=== PATIENT | female | born 1935 | race African-American/Black ===

== ENCOUNTER 2020-08-25 01:11 | Inpatient (IN) | payer MEDICARE, OTHER ==
[2020-08-25] VITALS (7 sets, daily range): BP systolic 95–153; BP diastolic 50–89
[~2020-08-25] VITALS: Ht 177.8 cm; Wt 85.6 kg
--- NOTE | 2020-08-25 01:11 | NUR ---
ED Nurse Note: brought in by [place] 67 from home c/o lt sided cp onset few hrs ago. pt reports pain radiation to let to rt shoulder 8./10 pain. states takiong nitro at home with no relief from pain. pt hx pacvemaker. denies sob, nvd, or dizziness. vss, nad, aaox4, ambulatory, on rn cardiac, ermd at bedside
--- NOTE | 2020-08-25 01:15 | NUR ---
ED Nurse Note: blood drawn and sent to lab
[2020-08-25] MEDS ORDERED: Nitroglycerin 2% oint pkt TOPIC ONE (01:30)
[2020-08-25] MEDS ORDERED: Morphine Sulfate 4mg/ml Inj (IV USE ONLY) IVP ONE (01:30)
--- NOTE | 2020-08-25 01:32 | NUR ---
ED Nurse Note: xr at bedside
--- NOTE | 2020-08-25 01:32 | Emergency Room Report ---
History of Present Illness General Chief Complaint: Chest Pain Source: Patient Present Illness HPI Pleasant 84-year-old female with a history of high blood pressure and COPD. She also has a pacemaker. She presents with treatment of chest pain. Onset around 10 PM. Pain is epigastric and substernal. Radiates to her left arm and in between the shoulder blades. Pain at its maximum was 8 out of 10. Better with nitroglycerin. Pain lasted about 4 to 5 minutes. She says she felt warm when it comes on. Denies any fever or chills. Denies any nausea or vomiting. No diaphoresis. With nitro, pain resolved but it only lasted for 5 to 10 minutes. Because of episodic pain, she called 911. [employer] gave her aspirin and x-ray of nitro. She said that helped. He said pain is better but still achy in nature. Allergies: Coded Allergies: No Known Allergies (Unverified , 08/25/20) COVID-19 Screening Contact w/high risk pt: No Experienced COVID-19 symptoms?: No COVID-19 Testing performed SCHOOL BUS DISPATCHER: No Patient History Past Medical History: see triage record, old chart reviewed, HTN, COPD Past Surgical History: pacemaker Pertinent Family History: none Social History: Denies: smoking Now: No Immunizations: other Reviewed Nursing Documentation: PMH: Agreed; PSxH: Agreed Nursing Documentation-PMH Hx Hypertension: Yes Hx Pacemaker: Yes - P/G 11/20/2013, RA and RV lead -04/06/1999 Hx COPD: Yes Review of Systems Eye: Denies: eye pain, blurred vision ENT: Denies: ear pain, nose congestion, throat swelling Respiratory: Denies: cough, shortness of breath Cardiovascular: Reports: chest pain; Denies: palpitations Gastrointestinal: Denies: abdominal pain, diarrhea, nausea, vomiting Musculoskeletal: Denies: back pain, joint pain Skin: Denies: rash Neurological: Denies: headache, numbness Endocrine: Denies: increased thirst, increased urine Hematologic/Lymphatic: Denies: easy bruising All Other Systems: negative except mentioned in HPI Physical Exam Vital Signs Date Time Temp Pulse Resp B/P (MAP) Pulse Ox O2 Delivery O2 Flow Rate FiO2 08/25/20 01:14 98.6 61 18 168/98 (121) 94 Room Air Vitals with high blood pressure Sp02 EP Interpretation: reviewed, normal General Appearance: well appearing, no apparent distress, alert Head: normocephalic, atraumatic Eyes: bilateral eye PERRL, bilateral eye EOMI ENT: hearing grossly normal, normal pharynx Neck: full range of motion, supple, no meningismus Respiratory: chest non-tender, lungs clear, normal breath sounds Cardiovascular #1: regular rate, rhythm, no murmur Gastrointestinal: normal bowel sounds, non tender, no mass, no organomegaly, no bruit, non-distended Musculoskeletal: back normal, normal range of motion, gait/station normal Psychiatric: mood/affect normal Medical Decision Making Diagnostic Impression: Primary Impression: ACS (acute coronary syndrome) ER Course This patient presents with chest pain. Her troponin is intermediate. EKG shows a paced rhythm. I see no evidence of Sgarbossa criteria for AMI. Patient is pain-free now. She received aspirin by golf ball cover treater. I gave her nitroglycerin, morphine and Lovenox here. Will admit for further work-up and cardiology consult. I contacted Dr. Antonio for admission. EKG Diagnostic Results Troponin ordered: Yes Rate: normal Rhythm: NSR ST Segments: other - Paced rhythm ASA given to the pt in ED: No - Given by EMS Rhythm Strip Diag. Results EP Interpretation: yes Rate: 60 Rhythm: NSR, no PVC's, no ectopy Chest X-Ray Diagnostic Results Chest X-Ray Diagnostic Results : Chest X-Ray Ordered: Yes # of Views/Limited/Complete: 1 View Indication: Chest Pain EP Interpretation: Yes Interpretation: no consolidation, no effusion, no pneumothorax, no acute cardiopulmonary disease, other - Pacemaker Impression: No acute disease Electronically Signed by: Martínez Mcarthur MD Last Vital Signs Date Time Temp Pulse Resp B/P (MAP) Pulse Ox O2 Delivery O2 Flow Rate FiO2 08/25/20 01:14 98.6 61 18 168/98 (121) 94 Room Air Status: improved Disposition: ADMITTED INPATIENT Condition: Serious Martínez Mcarthur MD Aug 25, 2020 01:32
[2020-08-25 01:42] LABS: BASOPHILS % (AUTO) 1.9 % (0.0-2.0); EOSINOPHILS % (AUTO) 15.1 % (0.0-3.0); HEMATOCRIT 42.4 % (37.0-47.0); HEMOGLOBIN 14.6 G/DL (12.0-16.0); LYMPHOCYTES % (AUTO) 33.2 % (20.0-45.0); MEAN CORPUSCULAR VOLUME 77 FL (80-99); MONOCYTES % (AUTO) 10.9 % (1.0-10.0); NEUTROPHILS % (AUTO) 38.9 % (45.0-75.0); PLATELET COUNT 163 K/UL (150-450); RED BLOOD COUNT 5.52 M/UL (4.20-5.40); RED CELL DISTRIBUTION WIDTH 13.2 % (11.6-14.8); WHITE BLOOD COUNT 5.8 K/UL (4.8-10.8)
[2020-08-25 01:53] LABS: CALCIUM 9.2 MG/DL (8.5-10.1); CREATININE 1.4 MG/DL (0.55-1.30); POTASSIUM 4.3 MMOL/L (3.5-5.1)
[2020-08-25 01:58] LABS: ALBUMIN 3.4 G/DL (3.4-5.0); BILIRUBIN,TOTAL 0.5 MG/DL (0.2-1.0)
[2020-08-25] MEDS ORDERED: Enoxaparin 80mg Inj SUBQ ONE (02:30)
--- NOTE | 2020-08-25 02:41 | NUR ---
ED Nurse Note: pt unable to provide urine at this time. will attempt at a later time
[2020-08-25] MEDS ORDERED: DISOPYRAMIDE P150 MG PO (02:45)
[2020-08-25] MEDS ORDERED: ASPIRIN81 MG ORAL (02:45)
[2020-08-25] MEDS ORDERED: METOPROLOL TAR100 M1 ORAL (02:45)
[2020-08-25] MEDS ORDERED: AMIODARONE HCL100 MG ORAL (02:45)
--- NOTE | 2020-08-25 02:49 | NUR ---
ED Nurse Note: gave report to Monisha STEIN
--- NOTE | 2020-08-25 02:50 | NUR ---
TRANSFER TO FLOOR: Patient transferred to [facility] via [facility] in stable condition as ordered, per dr. Antonio. Report given to Monisha STEIN. Belongings sent with patient
--- NOTE | 2020-08-25 03:10 | NUR ---
NURSES NOTES: Received report from [facility] ED, RN. Pt came to the floor in stable condition. Went over belonging with ED RN.Patient was able to ambulate from the gurney to the bed with assistance. Pt is A/O x 4. Pt is able to make needs known. Cheat pain of 6/10 noted. No SOB or acute distress noted. Pt is on room air stating at 96%. PT IV site is left AC 20G S/L; Patent and flushed. No bleeding or erythema noted. Patient was placed on the 5 lead teletypesetter monitor. Pt was placed on fall precaution. Bed in lowest position and locked with bed alarm on. Call light and belonging with in reach, patient educated on how to use call light. PT understand to use call light when needing assistance. Will contact Dr. mercado for admission ordered Will continue to monitor.
--- NOTE | 2020-08-25 03:44 | NUR ---
NURSE NOTES: Left message for Dr. Booth regarding patient status and requested admission orders. Awaiting call back. Will continue to monitor.
[2020-08-25] MEDS ORDERED: Morphine Sulfate 2mg/ml Inj(IV/IM USE ONLY) IVP PRN (06:00)
[2020-08-25] MEDS: D5 1/2NS 1,000 ML IV SCH ×2 (06:56→22:40)
--- NOTE | 2020-08-25 07:25 | NUR ---
NURSE HAND-OFF REPORT: Important Events on Shift: N/A Patient Status: Stable Diet: CCHO Pending Orders: Pending Results/Labs: Pending MD notification: Latest Vital Signs: Temperature 97.6 , Pulse 66 , B/P 150 /85 , Respiratory Rate 17 , O2 SAT 96 , Room Air, O2 Flow Rate . Vital Sign Comment: EKG Rhythm: AV-Paced Rhythm change?: N MD Notified?: - MD Response: Latest Owens Fall Score: 45 Fall Risk: High Risk Safety Measures: Call light Within Reach, Bed Alarm Zone 1, Side Rails Side Rails x2, Bed position Low and Locked. Fall Precautions: Yellow Socks Yellow Gown Door Sign Patient Fall Education Report given to Annemarie STEIN . Addendum: 08/25/20 at 0746 by Monisha Wise RN wrong patient
--- NOTE | 2020-08-25 07:25 | NUR ---
NURSE HAND-OFF REPORT: Important Events on Shift: Patient was admitted with chest pain. Indorsed EKG and Nitro patch to be taken off. Patient Status: Stable Diet: Low sodium Pending Orders: Pending Results/Labs: Pending MD notification: Latest Vital Signs: Temperature 97.6 , Pulse 66 , B/P 150 /85 , Respiratory Rate 17 , O2 SAT 96 , Room Air, O2 Flow Rate . Vital Sign Comment: EKG Rhythm: AV-Paced Rhythm change?: N MD Notified?: - MD Response: Latest Owens Fall Score: 45 Fall Risk: High Risk Safety Measures: Call light Within Reach, Bed Alarm Zone 1, Side Rails Side Rails x2, Bed position Low and Locked. Fall Precautions: Yellow Socks Yellow Gown Door Sign Patient Fall Education Report given to Annemarie STEIN.
--- NOTE | 2020-08-25 07:30 | NUR ---
NURSE NOTES: Received report from Monisha/RN. Pt sleeping awake, in semi-garcía position. On room air, no distress or SOB noted. IV on left AC 20G running D5 1/2NS @60ml/hr, patent and clean. Bed in the lowest position and locked. Call light within reach, side rails upx3. Will continue plan of care.
[2020-08-25 08:25] LABS: BASOPHILS % (AUTO) 2.1 % (0.0-2.0); EOSINOPHILS % (AUTO) 18.4 % (0.0-3.0); HEMATOCRIT 43.6 % (37.0-47.0); HEMOGLOBIN 14.7 G/DL (12.0-16.0); LYMPHOCYTES % (AUTO) 30.7 % (20.0-45.0); MEAN CORPUSCULAR VOLUME 76 FL (80-99); MONOCYTES % (AUTO) 9.3 % (1.0-10.0); NEUTROPHILS % (AUTO) 39.6 % (45.0-75.0); PLATELET COUNT 169 K/UL (150-450); RED BLOOD COUNT 5.71 M/UL (4.20-5.40); RED CELL DISTRIBUTION WIDTH 13.5 % (11.6-14.8)
[2020-08-25 08:53] LABS: ANION GAP 6 mmol/L (5-15); BLOOD UREA NITROGEN 21 mg/dL (7-18); CALCIUM 8.7 MG/DL (8.5-10.1); CARBON DIOXIDE 29 MMOL/L (21-32); CHLORIDE 101 MMOL/L (98-107); CREATININE 0.9 MG/DL (0.55-1.30); POTASSIUM 4.9 MMOL/L (3.5-5.1); SODIUM 136 MMOL/L (136-145)
[2020-08-25] MEDS: Heparin 5000 units/ml inj SUBQ SCH ×2 (09:21→21:36)
--- NOTE | 2020-08-25 11:57 | NUR ---
INTERNET SPECIALIST NOTE SW met w/ pt to assess social research assistant concern. PT resides alone at [address] [place] [address]. Pt reports being ambulatory w/o DMEs and independent w/ ADLs and IADLs. PT does not have a caregiver. PT does not have any social research assistant concerns/needs at this time. Emergency contact: Usman Brewer (child) [phone]
--- NOTE | 2020-08-25 12:06 | Cardiology Report ---
APPROVED REPORT EKG Measurement Heart [id number] HI 188P-9 [id number] <Conclusion> AV dual-paced rhythm Abnormal ECG
--- NOTE | 2020-08-25 12:32 | Cardiac Electrophysiology PN ---
Subjective Subjective [id number] Objective Last 24 Hour Vital Signs Date Time Temp Pulse Resp B/P (MAP) Pulse Ox O2 Delivery O2 Flow Rate FiO2 08/25/20 09:00 Room Air 08/25/20 08:00 97.5 65 20 95/65 (75) 97 08/25/20 08:00 67 08/25/20 04:00 97.6 66 17 150/85 (106) 96 08/25/20 04:00 69 08/25/20 03:50 Room Air 08/25/20 03:04 60 08/25/20 02:50 97.8 65 18 153/78 99 Room Air 99 08/25/20 02:41 97.8 65 18 153/78 99 Room Air 99 08/25/20 02:04 98.2 08/25/20 01:33 159/89 08/25/20 01:31 98.2 60 19 149/89 98 Room Air 08/25/20 01:31 60 18 Room Air 99 08/25/20 01:14 98.6 61 18 168/98 (121) 94 Room Air Intake and Output 08/24/20 08/25/20 19:00 07:00 Intake Total 0 ml Balance 0 ml Intake Oral 0 ml # Voids 1 Laboratory Tests Test 08/25/20 01:25 08/25/20 07:30 White Blood Count 5.8 K/UL (4.8-10.8) 5.0 K/UL (4.8-10.8) Red Blood Count 5.52 M/UL (4.20-5.40) H 5.71 M/UL (4.20-5.40) H Hemoglobin 14.6 G/DL (12.0-16.0) 14.7 G/DL (12.0-16.0) Hematocrit 42.4 % (37.0-47.0) 43.6 % (37.0-47.0) Mean Corpuscular Volume 77 FL (80-99) L 76 FL (80-99) L Mean Corpuscular Hemoglobin 26.5 PG (27.0-31.0) L 25.7 PG (27.0-31.0) L Mean Corpuscular Hemoglobin Concent 34.6 G/DL (32.0-36.0) 33.7 G/DL (32.0-36.0) Red Cell Distribution Width 13.2 % (11.6-14.8) 13.5 % (11.6-14.8) Platelet Count 163 K/UL (150-450) 169 K/UL (150-450) Mean Platelet Volume 6.0 FL (6.5-10.1) L 6.8 FL (6.5-10.1) Neutrophils (%) (Auto) 38.9 % (45.0-75.0) L 39.6 % (45.0-75.0) L Lymphocytes (%) (Auto) 33.2 % (20.0-45.0) 30.7 % (20.0-45.0) Monocytes (%) (Auto) 10.9 % (1.0-10.0) H 9.3 % (1.0-10.0) Eosinophils (%) (Auto) 15.1 % (0.0-3.0) H 18.4 % (0.0-3.0) H Basophils (%) (Auto) 1.9 % (0.0-2.0) 2.1 % (0.0-2.0) H Sodium Level 133 MMOL/L (136-145) L 136 MMOL/L (136-145) Potassium Level 4.3 MMOL/L (3.5-5.1) 4.9 MMOL/L (3.5-5.1) Chloride Level 98 MMOL/L (98-107) 101 MMOL/L (98-107) Carbon Dioxide Level 32 MMOL/L (21-32) 29 MMOL/L (21-32) Anion Gap 4 mmol/L (5-15) L 6 mmol/L (5-15) Blood Urea Nitrogen 23 mg/dL (7-18) H 21 mg/dL (7-18) H Creatinine 1.4 MG/DL (0.55-1.30) H 0.9 MG/DL (0.55-1.30) Estimat Glomerular Filtration Rate 43.4 mL/min (>60) > 60 mL/min (>60) Glucose Level 88 MG/DL (74-106) 81 MG/DL (74-106) Calcium Level 9.2 MG/DL (8.5-10.1) 8.7 MG/DL (8.5-10.1) Total Bilirubin 0.5 MG/DL (0.2-1.0) Aspartate Amino Transf (AST/SGOT) 23 U/L (15-37) Alanine Aminotransferase (ALT/SGPT) 12 U/L (12-78) Alkaline Phosphatase 56 U/L (46-116) Troponin I 0.351 ng/mL (0.000-0.056) 0.299 ng/mL (0.000-0.056) Total Protein 6.9 G/DL (6.4-8.2) Albumin 3.4 G/DL (3.4-5.0) Globulin 3.5 g/dL Albumin/Globulin Ratio 1.0 (1.0-2.7) Duran Will MD Aug 25, 2020 12:32
[2020-08-25] MEDS: Amiodarone 200mg tab ORAL SCH (13:02)
--- NOTE | 2020-08-25 13:59 | NUR ---
CASE MANAGEMENT:REVIEW 84 YR OLD FEMALE BIBA FROM HOME CC; LT SIDED CHEST PAIN PMH: PACEMAKER SI: ACS 98.6 61 18 168/98 94% ON RA BUN+23 CR+1.4 TROPONIN(+) 0.351 IS: NITRO 1" IV MORPHINE IV ZOFRAN LOVENOX CHEST XRAY : TO TELEMETRY UNIT DCP: FROM HOME
--- NOTE | 2020-08-25 14:49 | Diagnostic Imaging Report ---
Indication: Reason For Exam: CP Technique: Single AP view of the chest. Comparison: None. Findings: Limited examination due to patient positioning. The cardiomediastinal silhouette is enlarged when accounting for projection and technique. There is mild pulmonary vessel congestion. There is biapical scarring. There is no focal consolidation, pneumothorax or pleural effusion. Left approach ICD/pacemaker is noted. Osseous structures demonstrate no acute abnormality. IMPRESSION: Mild cardiomegaly with pulmonary vascular congestion. No airspace consolidation.
--- NOTE | 2020-08-25 16:30 | History and Physical Report ---
DATE OF ADMISSION: 08/25/2020 TIME SEEN: Approximate time is 1 p.m. CONSULTANTS: Duran Will MD. CHIEF COMPLAINT: Chest pain, elevated troponin, ACS. BRIEF HISTORY: This is an 84-year-old female, who lives at home, presented with slight sharp chest pain x1 day, intermittent, no radiation. The patient came to [facility], diagnosed with ACS, elevated troponin, admitted to telemetry. Currently calm in bed, chest pain somewhat improved. No complaint. REVIEW OF SYSTEMS: Slight chest pain. Slight short of breath. No nausea, vomiting, or diarrhea. PAST MEDICAL HISTORY: Include hypertension. PAST SURGICAL HISTORY: Pacemaker. MEDICATIONS: Include aspirin, amiodarone, atorvastatin, metoprolol, morphine, , Zofran, and nitroglycerin. ALLERGIES: Denies. SOCIAL HISTORY: No smoking. No alcohol. No intravenous drug abuse. FAMILY HISTORY: Noncontributory. PHYSICAL EXAMINATION: GENERAL: Calm in bed, oriented x3, no acute distress. VITAL SIGNS: Temperature is 97 degrees, pulse 60, respirations 20, blood pressure 117/63. CARDIOVASCULAR: No murmur. LUNGS: Distant and clear. ABDOMEN: Bowel sound positive. Nontender. Nondistended. EXTREMITIES: No cyanosis, clubbing, or edema. NEUROLOGIC: The patient moves all extremities, slightly weak. LABORATORY AND DIAGNOSTIC DATA: Labs at this time show CBC is normal. BMP shows BUN and creatinine 21/0.9, otherwise normal. Troponin 0.35 to 0.299. ASSESSMENT: ACS, elevated troponin, chest pain, hypertension. PLAN: Blood pressure, pain control. Dietary followup. Troponin q.8h. x3. EKG in the morning. Cardiology followup. CBC and BMP in the morning. Homar Antonio D.O. DR: ROCHELLE JOB#: [id number] CC:
[2020-08-25] MEDS: Docusate 100mg cap ORAL SCH (17:15)
--- NOTE | 2020-08-25 19:00 | Consultation ---
DATE OF CONSULTATION: 08/25/2020 CARDIOLOGY CONSULTATION CONSULTING PHYSICIAN: Duran Will MD. REFERRING PHYSICIAN: Homar Antonio DO. REASON FOR CONSULTATION: Management of chest pain and evaluation of the patient's pacemaker. HISTORY OF PRESENT ILLNESS: The patient is a very pleasant 84-year-old lady with history of hypertension and COPD, who had undergone at [facility] a pacemaker implantation in 1998. The patient underwent a pacemaker generator change in 2013. The patient presented complaining of chest pain at 10 o'clock at night with radiation to the left arm with intensity of the pain to 8/10 that improved with nitroglycerin, lasting 4 to 5 minutes. The patient was admitted and Cardiology consultation was requested for further evaluation and management. Her EKG was AV-paced. REVIEW OF SYSTEMS: Negative other than what was mentioned in history of present illness. PAST MEDICAL HISTORY: As mentioned above. FAMILY HISTORY: Noncontributory. SOCIAL HISTORY: She does not smoke or drink alcohol. PHYSICAL EXAMINATION: VITAL SIGNS: Blood pressure was 150/85 that improved to 94/65, pulse 65, respirations 18, and temperature 97.5. HEAD AND NECK: Showed no JVD. LUNGS: Clear. CARDIOVASCULAR: Regular S1 and S2 with no gallop or murmur. The pacemaker is in left subclavian. ABDOMEN: Soft. EXTREMITIES: No pitting edema. LABORATORY AND DIAGNOSTIC DATA: White count of 5, hemoglobin 14, hematocrit 43, and platelet count 169,000. Sodium 137, potassium 4.9, BUN of 21, creatinine 0.9. Troponin 0.35 and 0.3. ASSESSMENT AND PLAN: 1. [id number] myocardial infarction in an 84-year-old lady with chest pain and two elevated troponins. Current INR is 0.9 today. EKG is nondiagnostic; it is atrially and ventricularly paced. I would continue metoprolol 100 mg b.i.d., aspirin 81 mg daily, and add Lipitor to her medical regimen. I would not anticoagulate as the troponin level already coming down and the patient does not have any chest pain. We will get an echocardiogram for further evaluation. The patient most likely would need cardiac catheterization, but if the troponin remains stable, in view of her age, we may start with a nuclear stress test to see ischemia burden. Tentatively, if the patient refuses cardiac catheterization, we can treat the patient medically. 2. Status post [facility] pacemaker implantation in 1998 and generator change in 2013. We will interrogate the pacemaker for further evaluation. The pacemaker will also be interrogated for the burden of atrial fibrillation as the patient is currently on amiodarone 200 mg every 8 hours, which is a high dose for this 84-year-old lady. We will try to get home medications and review that. 3. Paroxysmal atrial fibrillation, on aspirin, metoprolol, and amiodarone. Thank you very much, Dr. Antonio, for allowing me to participate in the care of this patient. Please do not hesitate to contact me for any questions regarding my evaluation. Duran Will M.D. DR: Cheryl JOB#: [id number] CC:
--- NOTE | 2020-08-25 19:21 | NUR ---
NURSE HAND-OFF REPORT: Important Events on Shift:None Patient Status: Stable Diet: Low sodium Pending Orders: Pending Results/Labs: Pending MD notification: Latest Vital Signs: Temperature 97.5 , Pulse 60 , B/P 104 /53 , Respiratory Rate 20 , O2 SAT 97 , Room Air, O2 Flow Rate . Vital Sign Comment: Stable EKG Rhythm: AV-Paced Rhythm change?: N MD Notified?: - MD Response: Latest Owens Fall Score: 45 Fall Risk: High Risk Safety Measures: Call light Within Reach, Bed Alarm Zone 1, Side Rails Side Rails x2, Bed position Low and Locked. Fall Precautions: Yellow Socks Yellow Gown Door Sign Patient Fall Education Report given to Mehrdad/SARITA.
--- NOTE | 2020-08-25 19:30 | NUR ---
NURSE NOTES: Received report from Annemarie STEIN. Pt resting in bed comfortably. No s/s of distress or discomfort noted. Pt on room air no SOB noted sating 96%. Pt has IV on left AC 20G w/D5 1/2NS @60ml/hr, patent and intact. Bed in the lowest position and locked. Call light within reach, side rails upx3. Will continue plan of care.
[2020-08-25] MEDS: Metoprolol Tartrate 100mg tab ORAL SCH (21:00)
[2020-08-25] MEDS: Atorvastatin 20mg tab ORAL SCH (21:35)
[2020-08-25] MEDS ORDERED: Amiodarone 200mg tab ORAL SCH (22:00)
--- NOTE | 2020-08-25 23:05 | NUR ---
NURSE NOTES: Lab called Troponin:0.331. Notified doctor of result. Pt in stable condition. Continue to monitor.
[2020-08-26] VITALS: BP 105/52
[2020-08-26 03:45] LABS: HEMATOCRIT 39.1 % (37.0-47.0); MEAN CORPUSCULAR VOLUME 83 FL (80-99); PLATELET COUNT 134 K/UL (150-450); RED BLOOD COUNT 4.73 M/UL (4.20-5.40); RED CELL DISTRIBUTION WIDTH 14.7 % (11.6-14.8); WHITE BLOOD COUNT 4.3 K/UL (4.8-10.8)
[2020-08-26 04:00] VITALS: BP 110/55
--- NOTE | 2020-08-26 04:19 | NUR ---
NURSE NOTES: Lab called Troponin:0.319. Result is trending down from previous result. Pt in stable condition. Continue to monitor.
[2020-08-26 04:37] LABS: CREATINE KINASE 31 U/L (26-308)
[2020-08-26 04:44] LABS: ANION GAP 4 mmol/L (5-15); BLOOD UREA NITROGEN 18 mg/dL (7-18); CALCIUM 8.2 MG/DL (8.5-10.1); CARBON DIOXIDE 27 MMOL/L (21-32); CHLORIDE 105 MMOL/L (98-107); CHOLESTEROL 117 MG/DL (< 200); HDL CHOLESTEROL 63 MG/DL (40-60); POTASSIUM 4.5 MMOL/L (3.5-5.1); SODIUM 136 MMOL/L (136-145); TRIGLYCERIDES 41 MG/DL (30-150)
--- NOTE | 2020-08-26 07:20 | NUR ---
NURSE HAND-OFF REPORT: Important Events on Shift:[] Patient Status: [] Diet: [] Pending Orders: [] Pending Results/Labs:[] Pending MD notification:[] Latest Vital Signs: Temperature 98.1 , Pulse 60 , B/P 110 /55 , Respiratory Rate 16 , O2 SAT 95 , Room Air, O2 Flow Rate . Vital Sign Comment: [] EKG Rhythm: AV-Paced Rhythm change?: N MD Notified?: - MD Response: Latest Owens Fall Score: 45 Fall Risk: High Risk Safety Measures: Call light Within Reach, Bed Alarm Zone 1, Side Rails Side Rails x2, Bed position Low and Locked. Fall Precautions: Yellow Socks Yellow Gown Door Sign Patient Fall Education Report given to [Inna STEIN].
--- NOTE | 2020-08-26 07:35 | NUR ---
NURSE NOTES: pt in bed sitting at the side of bed, AOx4. IV on AC is hurting, will discontinue IV, a second IV on the hand is patent and pt reports no pain on site when flushed. 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 Pt is not complaining of pain at this time. She stated she is feeling a lot better and asking when she will be going home. Bed is in lowest position, call light within reach. Will continue to monitor pt.
[2020-08-26 08:00] VITALS: BP 120/75
[2020-08-26] MEDS: Docusate 100mg cap ORAL SCH ×2 (09:32→17:04)
[2020-08-26] MEDS: Aspirin Baby 81mg ORAL SCH (09:33)
[2020-08-26] MEDS: Amiodarone 200mg tab ORAL SCH (09:33)
[2020-08-26] MEDS: Metoprolol Tartrate 100mg tab ORAL SCH ×2 (09:33→20:56)
[2020-08-26] MEDS: Heparin 5000 units/ml inj SUBQ SCH ×2 (09:44→20:54)
--- NOTE | 2020-08-26 09:47 | General Progress Note ---
Subjective Allergies: Coded Allergies: No Known Allergies (Unverified , 08/25/20) All Systems: reviewed and negative except above Subjective calm in bed Objective Last 24 Hour Vital Signs Date Time Temp Pulse Resp B/P (MAP) Pulse Ox O2 Delivery O2 Flow Rate FiO2 08/26/20 09:33 68 120/75 08/26/20 08:00 97.9 68 20 120/75 (90) 97 08/26/20 04:00 60 08/26/20 04:00 98.1 61 16 110/55 (73) 95 08/26/20 00:00 60 08/26/20 00:00 97.9 66 18 105/52 (69) 96 08/25/20 21:00 Room Air 08/25/20 21:00 60 94/49 08/25/20 20:00 97.5 60 18 99/50 (66) 95 08/25/20 20:00 83 08/25/20 16:00 60 08/25/20 16:00 97.5 60 20 104/53 (70) 97 08/25/20 12:00 97.5 60 20 117/63 (81) 96 08/25/20 12:00 60 Intake and Output 08/25/20 08/26/20 19:00 07:00 Intake Total 600 ml Balance 600 ml IV Total 600 ml # Voids 4 2 Laboratory Tests 08/25/20 13:55: Troponin I 0.268H 08/25/20 22:05: Troponin I 0.331H 08/26/20 03:08: Troponin I 0.319H, White Blood Count 4.3L, Red Blood Count 4.73, Hemoglobin 13.0, Hematocrit 39.1, Mean Corpuscular Volume 83#, Mean Corpuscular Hemoglobin 27.5, Mean Corpuscular Hemoglobin Concent 33.3, Red Cell Distribution Width 14.7, Platelet Count 134L, Mean Platelet Volume 7.5, Neutrophils (%) (Auto) , Lymphocytes (%) (Auto) , Monocytes (%) (Auto) , Eosinophils (%) (Auto) , Basophils (%) (Auto) , Sodium Level 136, Potassium Level 4.5, Chloride Level 105, Carbon Dioxide Level 27, Anion Gap 4L, Blood Urea Nitrogen 18, Creatinine 1.0, Estimat Glomerular Filtration Rate > 60, Glucose Level 107H, Calcium Level 8.2L, Total Creatine Kinase 31, Pro-B-Type Natriuretic Peptide 1690H, Triglycerides Level 41, Cholesterol Level 117, LDL Cholesterol 46, HDL Cholesterol 63H, Cholesterol/HDL Ratio 1.9L Height (Feet): 5 Height (Inches): 10.00 Weight (Pounds): 194 General Appearance: lethargic EENT: normal ENT inspection Neck: normal alignment Cardiovascular: normal peripheral pulses, normal rate, regular rhythm Respiratory/Chest: chest wall non-tender, lungs clear, normal breath sounds Abdomen: normal bowel sounds, non tender, soft Extremities: normal inspection Edema: no edema noted Arm (L), no edema noted Arm (R), no edema noted Leg (L), no edema noted Leg (R), no edema noted Pedal (L), no edema noted Pedal (R), no edema noted Generalized Neurologic: motor weakness Skin: normal pigmentation, warm/dry Assessment/Plan Problem List: (1) Elevated troponin ICD Codes: R77.8 - Other specified abnormalities of plasma proteins SNOMED: 727305264, [id number], [id number] (2) HTN (hypertension) ICD Codes: I10 - Essential (primary) hypertension SNOMED: 52758588 (3) ACS (acute coronary syndrome) ICD Codes: I24.9 - Acute ischemic heart disease, unspecified SNOMED: 458929162 Status: unchanged Assessment/Plan: bp pain control cardio f/u cbc bmp am dc plan w Homar West DO Aug 26, 2020 09:47
--- NOTE | 2020-08-26 11:34 | Cardiac Electrophysiology PN ---
Assessment/Plan Assessment/Plan 1. Rak-PN-nszrmrxwo myocardial infarction in an 84-year-old lady with chest pain and 5 elevated troponins. EKG is nondiagnostic; it is atrially and ventricularly paced. I would continue metoprolol 100 mg b.i.d., aspirin 81 mg daily and Lipitor Echo showed EF 40% The patient would need cardiac catheterization for further evaluation. DW patient the risks and benefits and alternatives and she agreed to proceed. RN at bedside. 2. Status post [employer] pacemaker implantation in 1998 and generator change in 2013. Interrogated the pacemaker that showed Nl Fx Battery 3.5 years. No mode switches. >99% AV paced 3. Paroxysmal atrial fibrillation, on aspirin, metoprolol, and amiodarone. Off anticoagulation as Pacer check no recurrence of atrial fib Subjective Subjective Alert in NAD. No CP. Echo showed EF 40% Objective Last 24 Hour Vital Signs Date Time Temp Pulse Resp B/P (MAP) Pulse Ox O2 Delivery O2 Flow Rate FiO2 08/26/20 09:33 68 120/75 08/26/20 08:00 97.9 68 20 120/75 (90) 97 08/26/20 04:00 60 08/26/20 04:00 98.1 61 16 110/55 (73) 95 08/26/20 00:00 60 08/26/20 00:00 97.9 66 18 105/52 (69) 96 08/25/20 21:00 Room Air 08/25/20 21:00 60 94/49 08/25/20 20:00 97.5 60 18 99/50 (66) 95 08/25/20 20:00 83 08/25/20 16:00 60 08/25/20 16:00 97.5 60 20 104/53 (70) 97 08/25/20 12:00 97.5 60 20 117/63 (81) 96 08/25/20 12:00 60 Intake and Output 08/25/20 08/26/20 19:00 07:00 Intake Total 600 ml Balance 600 ml IV Total 600 ml # Voids 4 2 Laboratory Tests Test 08/25/20 13:55 08/25/20 22:05 08/26/20 03:08 Troponin I 0.268 ng/mL (0.000-0.056) 0.331 ng/mL (0.000-0.056) 0.319 ng/mL (0.000-0.056) White Blood Count 4.3 K/UL (4.8-10.8) L Red Blood Count 4.73 M/UL (4.20-5.40) Hemoglobin 13.0 G/DL (12.0-16.0) Hematocrit 39.1 % (37.0-47.0) Mean Corpuscular Volume 83 FL (80-99) # Mean Corpuscular Hemoglobin 27.5 PG (27.0-31.0) Mean Corpuscular Hemoglobin Concent 33.3 G/DL (32.0-36.0) Red Cell Distribution Width 14.7 % (11.6-14.8) Platelet Count 134 K/UL (150-450) L Mean Platelet Volume 7.5 FL (6.5-10.1) Neutrophils (%) (Auto) % (45.0-75.0) Lymphocytes (%) (Auto) % (20.0-45.0) Monocytes (%) (Auto) % (1.0-10.0) Eosinophils (%) (Auto) % (0.0-3.0) Basophils (%) (Auto) % (0.0-2.0) Sodium Level 136 MMOL/L (136-145) Potassium Level 4.5 MMOL/L (3.5-5.1) Chloride Level 105 MMOL/L (98-107) Carbon Dioxide Level 27 MMOL/L (21-32) Anion Gap 4 mmol/L (5-15) L Blood Urea Nitrogen 18 mg/dL (7-18) Creatinine 1.0 MG/DL (0.55-1.30) Estimat Glomerular Filtration Rate > 60 mL/min (>60) Glucose Level 107 MG/DL (74-106) H Calcium Level 8.2 MG/DL (8.5-10.1) L Total Creatine Kinase 31 U/L (26-308) Pro-B-Type Natriuretic Peptide 1690 pg/mL (0-125) H Triglycerides Level 41 MG/DL (30-150) Cholesterol Level 117 MG/DL (< 200) LDL Cholesterol 46 mg/dL (<100) HDL Cholesterol 63 MG/DL (40-60) H Cholesterol/HDL Ratio 1.9 (3.3-4.4) L Objective HEAD AND NECK: no JVD. LUNGS: Clear. CARDIOVASCULAR: Regular S1 and S2 with no gallop or murmur. The pacemaker is in left subclavian. ABDOMEN: Soft. EXTREMITIES: No pitting edema. Duran Will MD Aug 26, 2020 11:34
[2020-08-26 12:00] VITALS: BP 158/84
--- NOTE | 2020-08-26 13:01 | NUR ---
CASE MANAGEMENT:REVIEW 08/26/20 SI: NSTEMI. PAFIB PACEMAKER 97.9 68 20 120/75 97% ON RA TROPONIN(+) 0.319 IS: ASA PO QD LOPRESSOR PO Q12 AMIODARONE PO QD HEPARIN SQ Q12 IVF@60/HR : TELEMETRY STATUS
--- NOTE | 2020-08-26 13:13 | NUR ---
TRANSFER UPDATE CLINICALS FAXED TO [facility] T: [phone] F: [phone] COVID SWAB REQUESTED BY [facility]PER[facility] Addendum: 08/26/20 at 1546 by MAXIM STANLEY LVN LVN FAXED COVID RESULTS TO [facility] WILL CALL [facility] WHEN BED IS AVAILABLE NURSING WILL NEED TO CALL [facility] FOR ACLS TRANSPORTATION
--- NOTE | 2020-08-26 15:24 | Cardiology Report ---
APPROVED REPORT EKG Measurement Heart [id number] <Conclusion> AV dual-paced rhythm Abnormal ECG
[2020-08-26] MEDS: D5 1/2NS 1,000 ML IV SCH (15:27)
--- NOTE | 2020-08-26 15:35 | Cardiology Report ---
APPROVED REPORT EKG Measurement Heart [id number] MD [id number] <Conclusion> AV dual-paced rhythm Abnormal ECG
--- NOTE | 2020-08-26 15:39 | NUR ---
NURSE NOTES: report given to Bertha/SARITA, pt in stable condition, rn cardiac cath on pt, she has no complains of chest pain or respiratory distress. Bed is locked and in lowest position. Call light within reach. pt awaiting transfer to for cardiac cath to [facility]. [facility].
[2020-08-26 16:00] VITALS: BP 104/59
--- NOTE | 2020-08-26 19:21 | NUR ---
NURSE HAND-OFF REPORT: Important Events on Shift:[] Patient Status: [] Diet: [] Pending Orders: [] Pending Results/Labs:[] Pending MD notification:[] Latest Vital Signs: Temperature 97.0 , Pulse 60 , B/P 104 /59 , Respiratory Rate 20 , O2 SAT 95 , Room Air, O2 Flow Rate . Vital Sign Comment: [] EKG Rhythm: AV-Paced Rhythm change?: N Notified?: - MD Response: Latest Owens Fall Score: 45 Fall Risk: High Risk Safety Measures: Call light Within Reach, Bed Alarm Zone 1, Side Rails Side Rails x2, Bed position Low and Locked. Fall Precautions: Yellow Socks Yellow Gown Door Sign Patient Fall Education Report given to []. Addendum: 08/26/20 at 1935 by Bertha Sin RN RN NURSE HAND-OFF REPORT: Important Events on Shift: awaiting transfer to [facility] Patient Status: FC, stable Diet: low sodium Pending Orders: Pending Results/Labs: Pending MD notification: Latest Vital Signs: Temperature 97.0 , Pulse 60 , B/P 104 /59 , Respiratory Rate 20 , O2 SAT 95 , Room Air, O2 Flow Rate . Vital Sign Comment: EKG Rhythm: AV-Paced Rhythm change?: N Notified?: - MD Response: Latest Owens Fall Score: 45 Fall Risk: High Risk Safety Measures: Call light Within Reach, Bed Alarm Zone 1, Side Rails Side Rails x2, Bed position Low and Locked. Fall Precautions: Yellow Socks Yellow Gown Door Sign Patient Fall Education Report given to SARITA Perea .
--- NOTE | 2020-08-26 19:30 | NUR ---
NURSE NOTES: Received patient from SARIAT Stone. AAOx4, able to verbalize needs. On room air, saturating well. Breathing unlabored and even. IV site on LH#22g, running D5 1/2 Ns at 60cc/hr. IV site flushed, asymptomatic, and patent. No complaints of pain or discomfort at this time. No signs of acute distress or shortness of breath. Patient ambulatory, but reinforced need to call nurse for assistance if needed. Bed in lowest position, brakes engaged and bed alarm on. Bed rails raised x2. Call light placed within reach. Will continue to monitor.
[2020-08-26 20:00] VITALS: BP 111/71
--- NOTE | 2020-08-26 20:49 | NUR ---
NURSE NOTES: Moved patient to 205-1. Patient stable. All belongings accounted for and moved within the patient. Will continue to monitor.
[2020-08-26] MEDS: Atorvastatin 20mg tab ORAL SCH (20:56)
[2020-08-27] VITALS: BP 115/62
--- NOTE | 2020-08-27 02:42 | NUR ---
NURSE NOTES: pt seen asleep and resting in bed. no complaints of pain or discomfort at this time. ivf running at a prescribed rate. bed in lowest position, brakes engaged and bed alarm on. call light placed within reach. will continue to monitor.
[2020-08-27 04:00] VITALS: BP 110/60
--- NOTE | 2020-08-27 07:38 | NUR ---
NURSE HAND-OFF REPORT: Important Events on Shift:[Awaiting bed availability to [facility].] Patient Status: [FC] Diet: [low sodium] Pending Orders: [na] Pending Results/Labs:[na] Pending MD notification:[na] Latest Vital Signs: Temperature 97.5 , Pulse 68 , B/P 110 /60 , Respiratory Rate 18 , O2 SAT 96 , Room Air, O2 Flow Rate . Vital Sign Comment: [] EKG Rhythm: AV-Paced Rhythm change?: N MD Notified?: - MD Response: Latest Owens Fall Score: 45 Fall Risk: High Risk Safety Measures: Call light Within Reach, Bed Alarm Zone 1, Side Rails Side Rails x2, Bed position Low and Locked. Fall Precautions: Yellow Socks Yellow Gown Door Sign Patient Fall Education Report given to [SARITA Kieth].
[2020-08-27 07:47] LABS: HEMATOCRIT 39.4 % (37.0-47.0); HEMOGLOBIN 13.1 G/DL (12.0-16.0); MEAN CORPUSCULAR VOLUME 79 FL (80-99); PLATELET COUNT 140 K/UL (150-450); RED BLOOD COUNT 4.96 M/UL (4.20-5.40); RED CELL DISTRIBUTION WIDTH 14.3 % (11.6-14.8); WHITE BLOOD COUNT 4.1 K/UL (4.8-10.8)
--- NOTE | 2020-08-27 07:48 | NUR ---
NURSE NOTES: pt in bed about to have breakfast. pt is awaiting to for a bed at [facility] to be transfer. Pt on surveillance system monitor no signs of cardiac or respiratory distress at this time. Bed in lowest position, call light within reach. IV intact and patent. Will continue to monitor pt.
[2020-08-27 07:58] LABS: ANION GAP 5 mmol/L (5-15); BLOOD UREA NITROGEN 14 mg/dL (7-18); CALCIUM 8.4 MG/DL (8.5-10.1); CARBON DIOXIDE 27 MMOL/L (21-32); CHLORIDE 104 MMOL/L (98-107); CREATININE 0.9 MG/DL (0.55-1.30); POTASSIUM 4.4 MMOL/L (3.5-5.1); SODIUM 136 MMOL/L (136-145)
[2020-08-27 08:00] VITALS: BP 127/75
[2020-08-27] MEDS: D5 1/2NS 1,000 ML IV SCH (09:35)
[2020-08-27] MEDS: Docusate 100mg cap ORAL SCH (09:36)
[2020-08-27] MEDS: Metoprolol Tartrate 100mg tab ORAL SCH (09:36)
[2020-08-27] MEDS: Amiodarone 200mg tab ORAL SCH (09:36)
[2020-08-27] MEDS: Aspirin Baby 81mg ORAL SCH (09:36)
[2020-08-27] MEDS: Heparin 5000 units/ml inj SUBQ SCH (09:42)
--- NOTE | 2020-08-27 10:44 | Cardiac Electrophysiology PN ---
Assessment/Plan Assessment/Plan 1. Bis-RT-aydiwhvsn myocardial infarction in an 84-year-old lady with chest pain and 5 elevated troponins. EKG is nondiagnostic; it is atrially and ventricularly paced. I would continue metoprolol 100 mg b.i.d., aspirin 81 mg daily and Lipitor Echo showed EF 40% Awaiting transfer to [facility] for cardiac catheterization DW patient the risks and benefits and alternatives and she agreed to proceed. RN at bedside. 2. Status post [employer] pacemaker implantation in 1998 and generator change in 2013. Interrogated the pacemaker that showed Nl Fx Battery 3.5 years. No mode switches. >99% AV paced 3. Paroxysmal atrial fibrillation, on aspirin, metoprolol, and amiodarone. 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 No CP. Echo showed EF 40%. awaiting transfer to [facility] for cardiac cath Objective Last 24 Hour Vital Signs Date Time Temp Pulse Resp B/P (MAP) Pulse Ox O2 Delivery O2 Flow Rate FiO2 08/27/20 09:36 73 127/75 08/27/20 08:00 98.4 73 18 127/75 (92) 97 08/27/20 04:00 97.5 68 18 110/60 (77) 96 08/27/20 04:00 60 08/27/20 00:00 97.8 72 18 115/62 (79) 96 08/27/20 00:00 65 08/26/20 21:00 Room Air 08/26/20 20:56 65 111/71 08/26/20 20:00 97.0 65 18 111/71 (84) 94 08/26/20 20:00 61 08/26/20 16:00 97.0 61 20 104/59 (74) 95 08/26/20 16:00 60 08/26/20 12:00 97.5 78 18 158/84 (108) 97 08/26/20 12:00 68 Intake and Output 08/26/20 08/27/20 19:00 07:00 Intake Total 573 ml 780 ml Balance 573 ml 780 ml Intake Oral 360 ml IV Total 213 ml 660 ml Other 120 ml # Voids 4 3 Laboratory Tests Test 08/27/20 05:45 White Blood Count 4.1 K/UL (4.8-10.8) L Red Blood Count 4.96 M/UL (4.20-5.40) Hemoglobin 13.1 G/DL (12.0-16.0) Hematocrit 39.4 % (37.0-47.0) Mean Corpuscular Volume 79 FL (80-99) L Mean Corpuscular Hemoglobin 26.4 PG (27.0-31.0) L Mean Corpuscular Hemoglobin Concent 33.3 G/DL (32.0-36.0) Red Cell Distribution Width 14.3 % (11.6-14.8) Platelet Count 140 K/UL (150-450) L Mean Platelet Volume 7.0 FL (6.5-10.1) Neutrophils (%) (Auto) % (45.0-75.0) Lymphocytes (%) (Auto) % (20.0-45.0) Monocytes (%) (Auto) % (1.0-10.0) Eosinophils (%) (Auto) % (0.0-3.0) Basophils (%) (Auto) % (0.0-2.0) Neutrophils % (Manual) Pending Lymphocytes % (Manual) Pending Platelet Estimate Pending Platelet Morphology Pending Sodium Level 136 MMOL/L (136-145) Potassium Level 4.4 MMOL/L (3.5-5.1) Chloride Level 104 MMOL/L (98-107) Carbon Dioxide Level 27 MMOL/L (21-32) Anion Gap 5 mmol/L (5-15) Blood Urea Nitrogen 14 mg/dL (7-18) Creatinine 0.9 MG/DL (0.55-1.30) Estimat Glomerular Filtration Rate > 60 mL/min (>60) Glucose Level 84 MG/DL (74-106) Calcium Level 8.4 MG/DL (8.5-10.1) L Microbiology Date/Time Source Procedure Growth Status 08/26/20 13:42 Nasopharynx SARS-CoV-2 RdRp Gene Assay - Final Complete Objective HEAD AND NECK: no JVD. LUNGS: Clear. CARDIOVASCULAR: Regular S1 and S2 with no gallop or murmur. The pacemaker is in left subclavian. ABDOMEN: Soft. EXTREMITIES: No pitting edema. Duran Will MD Aug 27, 2020 10:44
--- NOTE | 2020-08-27 11:47 | NUR ---
DISCHARGE/TRANSFER: NOTE COVID RESULTS FAXED TO [facility]W [facility] REGARDING BED ASSIGNMENT. UPDATE PROVIDED AND BED PENDING Addendum: 08/27/20 at 1340 by Jennifer Johnson CM F/U CALL PLACED TO [facility] REGARDING BED ASSIGNMENT. [facility] IS "JUGGLING BEDS" AT THE MOMENT. CM TO F/U
[2020-08-27 12:00] VITALS: BP 103/53
--- NOTE | 2020-08-27 12:22 | General Progress Note ---
Subjective Constitutional: Reports: weakness Allergies: Coded Allergies: No Known Allergies (Unverified , 08/25/20) All Systems: reviewed and negative except above Subjective calm in bed Objective Last 24 Hour Vital Signs Date Time Temp Pulse Resp B/P (MAP) Pulse Ox O2 Delivery O2 Flow Rate FiO2 08/27/20 09:36 73 127/75 08/27/20 09:00 Room Air 08/27/20 08:00 90 08/27/20 08:00 98.4 73 18 127/75 (92) 97 08/27/20 04:00 97.5 68 18 110/60 (77) 96 08/27/20 04:00 60 08/27/20 00:00 97.8 72 18 115/62 (79) 96 08/27/20 00:00 65 08/26/20 21:00 Room Air 08/26/20 20:56 65 111/71 08/26/20 20:00 97.0 65 18 111/71 (84) 94 08/26/20 20:00 61 08/26/20 16:00 97.0 61 20 104/59 (74) 95 08/26/20 16:00 60 Intake and Output 08/26/20 08/27/20 19:00 07:00 Intake Total 573 ml 780 ml Balance 573 ml 780 ml Intake Oral 360 ml IV Total 213 ml 660 ml Other 120 ml # Voids 4 3 Laboratory Tests 08/27/20 05:45: White Blood Count 4.1L, Red Blood Count 4.96, Hemoglobin 13.1, Hematocrit 39.4, Mean Corpuscular Volume 79L, Mean Corpuscular Hemoglobin 26.4L, Mean Corpuscular Hemoglobin Concent 33.3, Red Cell Distribution Width 14.3, Platelet Count 140L, Mean Platelet Volume 7.0, Neutrophils (%) (Auto) , Lymphocytes (%) (Auto) , Monocytes (%) (Auto) , Eosinophils (%) (Auto) , Basophils (%) (Auto) , Differential Total Cells Counted 100, Neutrophils % (Manual) 31L, Lymphocytes % (Manual) 42, Monocytes % (Manual) 9, Eosinophils % (Manual) 18H, Basophils % (Manual) 0, Band Neutrophils 0, Platelet Estimate DecreasedL, Platelet Morphology Normal, Microcytosis 2+, Sodium Level 136, Potassium Level 4.4, C hloride Level 104, Carbon Dioxide Level 27, Anion Gap 5, Blood Urea Nitrogen 14, Creatinine 0.9, Estimat Glomerular Filtration Rate > 60, Glucose Level 84, Calcium Level 8.4L Height (Feet): 5 Height (Inches): 10.00 Weight (Pounds): 194 General Appearance: lethargic EENT: normal ENT inspection Neck: normal alignment Cardiovascular: normal peripheral pulses, normal rate, regular rhythm Respiratory/Chest: chest wall non-tender, lungs clear, normal breath sounds Abdomen: normal bowel sounds, non tender, soft Extremities: normal inspection Edema: no edema noted Arm (L), no edema noted Arm (R), no edema noted Leg (L), no edema noted Leg (R), no edema noted Pedal (L), no edema noted Pedal (R), no edema noted Generalized Neurologic: motor weakness Skin: normal pigmentation, warm/dry Assessment/Plan Problem List: (1) Elevated troponin ICD Codes: R77.8 - Other specified abnormalities of plasma proteins SNOMED: 949922479, 255625171, [id number] (2) HTN (hypertension) ICD Codes: I10 - Essential (primary) hypertension SNOMED: 63150105 (3) ACS (acute coronary syndrome) ICD Codes: I24.9 - Acute ischemic heart disease, unspecified SNOMED: 013980637 Status: unchanged Assessment/Plan: bp pain control cardio f/u cbc bmp am [facility] transfer for Homar Shafer DO Aug 27, 2020 12:22
[2020-08-27] MEDS ORDERED: HEPARIN SO5000 UNIT2 SUBQ (14:37)
[2020-08-27] MEDS ORDERED: DOCUSATE SODIU100 MG ORAL (14:38)
[2020-08-27] MEDS ORDERED: LIPITOR20 MG ORAL (14:39)
--- NOTE | 2020-08-27 14:52 | NUR ---
DISCHARGE DISPOSITION: PLEASE READ PATIENT TO BE DISCHARGED TO [facility] [id number] [facility] [address] T: [phone]>> CALL FOR REPORT [facility] REQUESTED FOR [phone] TRANSFER REPORT PROVIDED
[2020-08-27 16:00] VITALS: BP 139/85
--- NOTE | 2020-08-27 16:35 | NUR ---
NURSE NOTES: pt. left via ambulance in stable condition. Pt left to [facility]. clay temperer was taken off from pt. IV was not DC as per patient's request and ambulance preference. Pt took all her belongings with her including telephone and truck striker. report was given to Estella from [facility]. Pt son Usman was notified about pt's transfer.
== END 2020-08-27 16:37 | disposition short-term general hospital (02) | DRG 282 ==
LOC: EDBD 01:11 → EDUNIT# 01:11 → EMR 01:28 → 2E 01:47 → CMPBEDREQ 02:26 → 2E 08-26 20:58
DX: I21.4 Non-ST elevation (NSTEMI) myocardial infarction (principal); I24.9 Acute ischemic heart disease, unspecified; I10 Essential (primary) hypertension; I48.0 Paroxysmal atrial fibrillation; J44.9 Chronic obstructive pulmonary disease, unspecified; Z20.828 Contact with and (suspected) exposure to other viral communicable diseases; Z79.82 Long term (current) use of aspirin; Z79.899 Other long term (current) drug therapy; Z95.0 Presence of cardiac pacemaker
CPT/HCPCS: 36415; 71045; 80048; 80053; 80061; 82550; 83880; 84484; 85007; 85025; 93005; 93306; 96372; 96374; 96375; 99285; J2405; U0002